=== PATIENT | male | born 1980 | race Caucasian/White ===

== ENCOUNTER → 2021-06-27 | Outpatient (CLI) | payer OTHER ==
[2021-06-27 21:48] LABS: African American GFR (CKD) 127.9 (60.0-200.0); Anion Gap 13.3 mmol/L (4.00-12.00); BUN/Creat Ratio 13.09 Ratio (12.00-20.00); Blood Urea Nitrogen 10.8 mg/dL (9.0-27.0); Carbon Dioxide 21.4 mmol/L (21.6-31.8); Non-African American GFR(CKD) 110.3 (60.0-200.0); Potassium 4.5 mmol/L (3.5-5.5)
== END | disposition home or self-care (01) ==
LOC: LABWHC1 13:05
PROVIDERS: ATTEND Nurse Practitioner Family
DX: E87.8 Other disorders of electrolyte and fluid balance, not elsewhere classified (principal)
CPT/HCPCS: 36415; 80048

== ENCOUNTER 2021-07-05 06:29 | Emergency (ER) | payer OTHER ==
[2021-07-05 06:38] VITALS: BP 149/96; PULSE 71; RESP 18; TEMP 97.6
[2021-07-05] MEDS ORDERED: KETOROLAC 15 MG/ML 1 ML VIAL IM STA (06:43)
--- NOTE | 2021-07-05 06:47 | ED ---
Skin/Abscess/FB HPI - General Chief complaint: Skin/Abscess/Foreign Body Stated complaint: Wound Time Seen by Provider: 07/05/21 06:39 Source: patient, RN notes reviewed Mode of arrival: ambulatory Limitations: no limitations - History of Present Illness Initial comments: Patient is a 40-year-old male that presents to emergency department with a small constitution party draining abscess to his right upper abdomen. He notes he does not have a history of abscesses.He came in for antibiotics. Patient notes that it is draining on its own. Patient denied any other issues or complaints. He was otherwise well-appearing. He denied chest pain shortness of breath headache nausea vomiting diarrhea constipation fever fatigue chills. - Related Data Previous Rx's Medication Instructions Recorded Cephalexin [Keflex] 500 mg PO Q6HR #40 cap 07/05/21 Sulfamethox-Tmp 800-160Mg [Bactrim 1 each PO Q12HR #20 tab 07/05/21 Ds] Allergies Allergy/AdvReac Type Severity Reaction Status Date / Time No Known Allergies Allergy Verified 07/05/21 06:38 Review of Systems ROS Statement: Those systems with pertinent positive or pertinent negative responses have been documented in the HPI. ROS Other: All systems not noted in ROS Statement are negative. Past Medical History Past Medical History: Seizure Disorder History of Any Multi-Drug Resistant Organisms: None Reported Past Surgical History: Orthopedic Surgery Additional Past Surgical History / Comment(s): brain surgery Past Psychological History: No Psychological Hx Reported Smoking Status: Current every day smoker Past Alcohol Use History: None Reported Past Drug Use History: None Reported General Exam Limitations: no limitations General appearance: alert, in no apparent distress Head exam: Present: atraumatic, normocephalic, normal inspection Eye exam: Present: normal appearance, PERRL, EOMI. Absent: scleral icterus, conjunctival injection, periorbital swelling ENT exam: Present: normal exam, mucous membranes moist Neck exam: Present: normal inspection Respiratory exam: Present: normal lung sounds bilaterally. Absent: respiratory distress, wheezes, rales, rhonchi, stridor Cardiovascular Exam: Present: regular rate, normal rhythm, normal heart sounds. Absent: systolic murmur, diastolic murmur, rubs, gallop, clicks Neurological exam: Present: alert, oriented X3 Psychiatric exam: Present: normal affect, normal mood Skin exam: Present: warm, dry, intact, normal color. Absent: rash Expanded Type of lesion: Present: abscess (Right upper abdomen measuring approximately 1 cm x 1 cm, erythematous and tender open and draining.) Course Vital Signs 07/05/21 06:35 Temperature 97.6 F Pulse Rate 71 Respiratory 18 Rate Blood Pressure 149/96 O2 Sat by Pulse 99 Oximetry Medical Decision Making - Medical Decision Making 40-year-old male with a right upper abdomen abscess. History requesting antibiotics. 15 mg of Toradol ordered for pain after expressing pus for aerobic wound cult ure. Antibiotics sent to pharmacy. Case discussed with Dr. Flor, patient can discharge home. Disposition Clinical Impression: Abscess of skin of abdomen Disposition: HOME SELF-CARE Condition: Stable Instructions (If sedation given, give patient instructions): Abscess (ED) Additional Instructions: Please return to the Emergency Department if symptoms worsen or any other concerns. Follow-up with primary care in 1-2 days. Take antibiotics as prescribed. Take Tylenol and Motrin as needed for pain. Use warm compresses to keep draining. Prescriptions: Sulfamethox-Tmp 800-160Mg [Bactrim Ds] 1 each PO Q12HR #20 tab Cephalexin [Keflex] 500 mg PO Q6HR #40 cap Is patient prescribed a controlled substance at d/c from ED?: No Referrals: None,Stated [Primary Care Provider] - 1-2 days Time of Disposition: 06:46
== END 2021-07-05 07:10 | disposition home or self-care (01) ==
LOC: EC 06:29
DX: L02.211 Cutaneous abscess of abdominal wall (principal); F17.200 Nicotine dependence, unspecified, uncomplicated
CPT/HCPCS: 99283; 96372; 87070; 87205; J1885

== ENCOUNTER 2021-07-16 15:33 | Emergency (ER) | payer OTHER ==
[2021-07-16 16:02] VITALS: BP 150/99; PULSE 84; RESP 18; TEMP 98.6
--- NOTE | 2021-07-16 16:45 | ED ---
General Adult HPI - General Chief complaint: Upper Respiratory Infection Stated complaint: Poss COVID Time Seen by Provider: 07/16/21 16:03 Source: patient, RN notes reviewed Mode of arrival: ambulatory Limitations: no limitations - History of Present Illness Initial comments: Patient is a 40-year-old male presenting to the emergency department requesting a Covid test. Patient states he is currently living with the patient recently tested positive. Patient states he has some very mild congestion going on but otherwise no other symptoms, no fevers or chills, no coughing, no chest pain or shortness of breath, no nausea or vomiting. 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 He has no further complaints, his vitals are stable. - Related Data Previous Rx's Medication Instructions Recorded Cephalexin [Keflex] 500 mg PO Q6HR #40 cap 07/05/21 Sulfamethox-Tmp 800-160Mg [Bactrim 1 each PO Q12HR #20 tab 07/05/21 Ds] Allergies Allergy/AdvReac Type Severity Reaction Status Date / Time No Known Allergies Allergy Verified 07/16/21 16:02 Review of Systems ROS Statement: Those systems with pertinent positive or pertinent negative responses have been documented in the HPI. ROS Other: All systems not noted in ROS Statement are negative. Past Medical History Past Medical History: Seizure Disorder History of Any Multi-Drug Resistant Organisms: MRSA Date of last positivie culture/infection: 07/05/21 MDRO Source:: ABD MRSA Past Surgical History: Orthopedic Surgery Additional Past Surgical History / Comment(s): brain surgery Past Psychological History: No Psychological Hx Reported Smoking Status: Current every day smoker Past Alcohol Use History: None Reported Past Drug Use History: None Reported General Exam - General Exam Comments Initial Comments: GENERAL: Patient is well-developed and well-nourished. Patient is nontoxic and in no acute distress. HEAD: Atraumatic, normocephalic. EYES: Pupils equal round and reactive to light, extraocular movements intact, sclera anicteric, conjunctiva are normal. Eyelids were unremarkable. ENT: Nares patent, oropharynx clear without exudates. Moist mucous membranes. NECK: Normal range of motion, supple without lymphadenopathy or JVD. LUNGS: Unlabored respirations. Breath sounds clear to auscultation bilaterally and equal. No wheezes rales or rhonchi. HEART: Regular rate and rhythm without murmurs, rubs or gallops. ABDOMEN: Soft, nontender, normoactive bowel sounds. No guarding, no rebound. No masses appreciated. MUSCULOSKELETAL: Normal extremities with adequate strength and normal range of motion, no pitting or edema. No clubbing or cyanosis. NEUROLOGICAL: Patient is alert and oriented x 3. SKIN: Warm, Dry, normal turgor, no rashes or lesions noted. Limitations: no limitations Course Vital Signs 07/16/21 15:57 Temperature 98.6 F Pulse Rate 84 Respiratory 18 Rate Blood Pressure 150/99 O2 Sat by Pulse 99 Oximetry Medical Decision Making - Medical Decision Making Patient is a 40-year-old male here requesting Covid test for recent exposure. He has no symptoms, no complaints, exam is unremarkable, vitals are stable. Covid test is negative. He is stable for discharge. - Lab Data Lab Results 07/16/21 Range/Units 16:08 Coronavirus (PCR) Not Detected (Not Detectd) Disposition Clinical Impression: Exposure to COVID-19 virus Disposition: HOME SELF-CARE Condition: Stable Instructions (If sedation given, give patient instructions): Normal Exam (ED) Additional Instructions: Please return to the Emergency Department if symptoms worsen or any other concerns. Covid test is negative today. Is patient prescribed a controlled substance at d/c from ED?: No Referrals: None,Stated [Primary Care Provider] - 1-2 days Time of Disposition: 16:45
== END 2021-07-16 16:51 | disposition home or self-care (01) ==
LOC: EC 15:33
DX: Z20.822 Contact with and (suspected) exposure to COVID-19 (principal); F17.200 Nicotine dependence, unspecified, uncomplicated
CPT/HCPCS: 87635; 99282

== ENCOUNTER 2021-10-04 03:31 | Emergency (ER) | payer OTHER ==
[2021-10-04 03:38] VITALS: BP 148/89; PULSE 84; RESP 22; TEMP 99.4
--- NOTE | 2021-10-04 05:09 | ED ---
Fever HPI - General Chief Complaint: Fever Stated Complaint: Body Aches, Shortness of Breath Time Seen by Provider: 10/04/21 03:43 Source: patient Mode of arrival: ambulatory Limitations: no limitations - History of Present Illness MD Complaint: fever, malaise -: days(s) Temperature Source: subjective Context: sick contacts Associated Symptoms: chills, myalgias, headache, cough - Related Data Previous Rx's Medication Instructions Recorded Cephalexin [Keflex] 500 mg PO Q6HR #40 cap 07/05/21 Sulfamethox-Tmp 800-160Mg [Bactrim 1 each PO Q12HR #20 tab 07/05/21 Ds] Allergies Allergy/AdvReac Type Severity Reaction Status Date / Time No Known Allergies Allergy Verified 10/04/21 03:37 Review of Systems ROS Statement: Those systems with pertinent positive or pertinent negative responses have been documented in the HPI. ROS Other: All systems not noted in ROS Statement are negative. Constitutional: Reports: fever, chills Respiratory: Reports: cough. Denies: dyspnea, wheezes Cardiovascular: Denies: chest pain Gastrointestinal: Denies: abdominal pain, vomiting, diarrhea Genitourinary: Denies: dysuria Musculoskeletal: Reports: myalgia Skin: Denies: rash Neurological: Reports: headache. Denies: weakness, numbness, paresthesias Past Medical History Past Medical History: Seizure Disorder History of Any Multi-Drug Resistant Organisms: MRSA Date of last positivie culture/infection: 07/05/21 MDRO Source:: ABD MRSA Past Surgical History: Orthopedic Surgery Additional Past Surgical History / Comment(s): brain surgery Past Psychological History: No Psychological Hx Reported Smoking Status: Current every day smoker Past Alcohol Use History: None Reported Past Drug Use History: None Reported General Exam Limitations: no limitations General appearance: alert, in no apparent distress Head exam: Present: atraumatic, normocephalic Eye exam: Present: normal appearance. Absent: scleral icterus, conjunctival injection Neck exam: Present: normal inspection, full ROM. Absent: meningismus Respiratory exam: Present: normal lung sounds bilaterally. Absent: respiratory distress, wheezes, rales, rhonchi, stridor Cardiovascular Exam: Present: regular rate, normal rhythm, normal heart sounds. Absent: systolic murmur, diastolic murmur, rubs, gallop GI/Abdominal exam: Present: soft. Absent: distended, tenderness, guarding, rebound, rigid, mass Extremities exam: Present: normal inspection, normal capillary refill. Absent: pedal edema, calf tenderness Back exam: Present: normal inspection. Absent: CVA tenderness (R), CVA tenderness (L) Neurological exam: Present: alert Skin exam: Present: warm, dry, intact, normal color. Absent: rash Course Vital Signs 10/04/21 03:33 Temperature 99.4 F Pulse Rate 84 Respiratory 22 Rate Blood Pressure 148/89 O2 Sat by Pulse 97 Oximetry Medical Decision Making - Lab Data Lab Results 10/04/21 Range/Units 04:11 Coronavirus (PCR) Detected A (Not Detectd) Disposition Clinical Impression: COVID-19 Disposition: HOME SELF-CARE Condition: Good Instructions (If sedation given, give patient instructions): Coronavirus Disease 2019 (COVID-19) Is patient prescribed a controlled substance at d/c from ED?: No Referrals: None,Stated [Primary Care Provider] - 1-2 days
== END 2021-10-04 05:26 | disposition home or self-care (01) ==
LOC: EC 03:31
DX: U07.1 COVID-19 (principal); F17.200 Nicotine dependence, unspecified, uncomplicated; R50.9 Fever, unspecified
CPT/HCPCS: 87635; 99284

== ENCOUNTER 2022-04-04 20:27 | Emergency (ER) | payer OTHER ==
[2022-04-04 20:41] VITALS: BP 149/84; PULSE 81; RESP 20; TEMP 97.9
--- NOTE | 2022-04-04 22:01 | XR ---
PROCEDURE: XR hand complete RT - 3V DATE AND TIME: 04/04/2022 9:02 PM CLINICAL INDICATION: pain and swelling TECHNIQUE: Department protocol COMPARISON: None FINDINGS: There is soft tissue swelling, particularly thenar. There is no definite fracture, although the obliq ue view shows 2 linear lucencies at the neck of the second metacarpal. Request corroboration for poin t tenderness in this location. There is no malalignment. There is markedly advanced osteoarthrosis changes involving the radiocarpal joint and the carpal carp al articulations, particularly of the proximal carpal row. There is also bowing of the fifth metacarpal neck, suggesting remote and healed fifth metacarpal neck fracture. IMPRESSION: No definite acute fracture, but corroboration request as above.
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
[2022-04-04] MEDS ORDERED: KETOROLAC 15 MG/ML 1 ML VIAL IM STA (22:09)
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
== END 2022-04-04 23:33 | disposition home or self-care (01) ==
LOC: EC 20:27
DX: S62.360A Nondisplaced fracture of neck of second metacarpal bone, right hand, initial encounter for closed fracture (principal); S50.312A Abrasion of left elbow, initial encounter; S80.212A Abrasion, left knee, initial encounter; F17.200 Nicotine dependence, unspecified, uncomplicated; V87.8XXA Person injured in other specified noncollision transport accidents involving motor vehicle (traffic), initial encounter
CPT/HCPCS: 99283 ×2; 29125; 96372 ×2; 73110; 73130; J1885